=== PATIENT | male | born 1960 | race Caucasian/White ===

== ENCOUNTER 2016-08-31 17:20 | Emergency (ER) | payer OTHER ==
--- NOTE | 2016-09-01 19:09 | ER ---
ADMIT: 08/31/2016 RM/LOC: ER [facility] MR#: [id number] [address] [address] BAKARI PEREIRA [address] [place] [address] Emergency Room Report SEX: M AGE: 56 : 1960 DATE: 08/31/2016 The patient was signed out to me. Please refer to the main dictation by Dr. Calderon. The patient, Bakari Pereira, 56-year-old male, who came to the ER with chief complaint of trauma to the face. Allegedly, he was kicked by horse in the face. CT of the head was negative for any acute brain injury or hemorrhage. CT of the C-spine was negative for any acute injury or fractures. CT of the face was positive for left mandibular angle fracture extending to the molar area. I examined the patient, there is no laceration on the outside. I checked the buccal area and also in the inside of the mouth. On the left lower molar, there are streaks of blood in it, but as much as I tried to see in the laceration, I could not see any obvious wound, but there is a possibility that the laceration extended through the gum through the base of the molar, so I started the patient on penicillin and Lortab Elixir and advised to use the soft liquid diet and follow up with the ENT clinic in 1 day. The patient acknowledged he understood the plan and agreed with it and was discharged to home. Abrahan Schwab MD/ alex JOB #: [id number] CC: Mynor Calderon MD, Attending Physician . [facility] Physician
--- NOTE | 2016-09-07 18:57 | ER ---
ADMIT: 08/31/2016 RM/LOC: [facility] MR#: [id number] [address] [place] [id number] BAKARI MACIEL [address] [place] [address] Emergency Room Report SEX: M AGE: 56 : 1960 DATE: 08/31/2016 CHIEF COMPLAINT: Horse versus rider. HISTORY OF PRESENT ILLNESS: This is a 56-year-old white male, who was riding a horse when he was knocked down off it and suffered some type of head or facial trauma we do not know what because he was by himself. He appears to be a little bit confused after the event. Main complaint is left jaw. Otherwise that he is a bit quiet over the whole thing. PAST MEDICAL HISTORY: Seasonal allergies, hypertension, elevated cholesterol, short-term memory secondary to boxing. Had a septoplasty. ALLERGIES: NONE. FAMILY AND SOCIAL HISTORY: In with significant other. I do not believe that he is a smoker. REVIEW OF SYSTEMS: Unobtainable since he is still a bit confused after the event. PHYSICAL EXAMINATION: HEENT: He does have some swelling and tenderness over the left jaw. He has some bleeding around the teeth on the left mandible area as well. NECK: Supple. Questionable tenderness. RESPIRATORY: Negative. CARDIOVASCULAR: Negative. MUSCULOSKELETAL: He has pain over the kind of the right clavicle area at this time. Rest of review of systems is negative. PHYSICAL THERAPY NURSE: A little bit somnolent, but able to answer our questions. He has no motor or sensory deficits from what we can tell at this time. LABORATORY AND DIAGNOSTIC DATA: Laboratory is pending. CT scans head, neck, ADMIT: 08/31/2016 RM/LOC: [facility] MR#: [id number] [address] [id number] BAKARI MACIEL [address] [place] [address] Emergency Room Report SEX: M AGE: 56 : 1960 and face are pending. Chest x-ray is pending as well. PRELIMINARY DIAGNOSES: 1. Left mandible fracture. 2. Concussion. 3. Right shoulder pain. TREATMENT: At this time, he has an IV since he is a bit confused. We have held off on pain medicine. An addendum will need to be dictated by Dr. Schwab. CONDITION ON DISCHARGE: Serious but stable at this time. Mynor Calderon MD/ alex JOB #: [id number] CC: Mynor Calderon MD, Attending Physician [facility] Physician, Family Physician
== END 2016-08-31 20:05 | disposition home or self-care (01) ==
LOC: ER 17:20
DX: S06.0X0A Concussion without loss of consciousness, initial encounter (principal); S02.652A Fracture of angle of left mandible, initial encounter for closed fracture; M25.511 Pain in right shoulder; I10 Essential (primary) hypertension; E78.00 Pure hypercholesterolemia, unspecified; Z98.890 Other specified postprocedural states; Z79.899 Other long term (current) drug therapy; Z79.82 Long term (current) use of aspirin; W01.0XXA Fall on same level from slipping, tripping and stumbling without subsequent striking against object, initial encounter; Y93.52 Activity, horseback riding